=== PATIENT | male | born 1980 | race African-American/Black ===

== ENCOUNTER 2020-09-13 14:17 | Emergency (ER) | payer SELFPAY ==
[~2020-09-13] VITALS: Ht 182.9 cm; Wt 72.7 kg
[~2020-09-13 14:17] MED LIST: CEPHALEXIN500 MG OR; [UNRECOGNIZED DRUG - OTHER]; [UNRECOGNIZED DRUG - OTHER]
[2020-09-13] MEDS ORDERED: KEFLEX500 M1 PO (15:37)
[2020-09-13 16:00] VITALS: BP 141/96
== END 2020-09-13 16:00 | disposition home or self-care (01) | DRG 605 ==
LOC: ED 14:17
DX: S01.01XA Laceration without foreign body of scalp, initial encounter (principal); F17.290 Nicotine dependence, other tobacco product, uncomplicated; X58.XXXA Exposure to other specified factors, initial encounter; Y92.009 Unspecified place in unspecified non-institutional (private) residence as the place of occurrence of the external cause